=== PATIENT | female | born 1960 | race Caucasian/White ===

== ENCOUNTER 2017-07-08 10:47 | Day surgery (SDC) | payer BC ==
[~2017-07-08 10:47] MED LIST: Desflurane 240 ML Bottle ONE; Lactated Ringers 1,000 ML IV SCH; Lidocaine 2% 5 ML SDV ONE; Propofol 200 MG/20 ML SDV ONE; Sodium Chloride 0.9% 10 ML Syringe FLUSH PRN; Sodium Chloride 0.9% 2.5 ML Syringe FLUSH PRN
--- NOTE | 2017-07-08 11:30 | PCM.PREANE ---
Preanesthetic Assessment - Anesthesia/Transfusion/Family Hx Anesthesia History: Prior Anesthesia Reaction Other Type of Anesthesia Reaction Comment: "panic attacks waking up from anesthesia" Family History of Anesthesia Reaction: No Transfusion History: Prior Transfusion Without Reaction - Review of Systems General: No Symptoms Pulmonary: No Symptoms Cardiovascular: No Symptoms Neurological: No Symptoms Other: Reports: Anxiety - Physical Assessment NPO Status Date: 07/07/17 Height: 1.52 m Weight: 74.843 kg ASA Class: 3 Mental Status: Alert & Oriented x3 Airway Class: Mallampati = 1 Dentition: Reports: Normal Dentition Lungs: Clear to Auscultation, Normal Respiratory Effort Cardiovascular: Regular Rate, Regular Rhythm - Allergies Allergies/Adverse Reactions: Allergies Allergy/AdvReac Type Severity Reaction Status Date / Time erythromycin base Allergy Itching Verified 07/05/17 14:12 [Erythromycin Base] escitalopram oxalate Allergy Cough Verified 07/05/17 14:12 [From Lexapro] liraglutide [From Victoza] Allergy Nausea Verified 07/05/17 13:06 - Acknowledgements Anesthesia Type Planned: MAC Pt an Appropriate Candidate for the Planned Anesthesia: Yes Alternatives and Risks of Anesthesia Discussed w Pt/Guardian: Yes Pt/Guardian Understands and Agrees with Anesthesia Plan: Yes Additional Comments: PMH: DM2, CHEPE, narcolepsy, HTN, GERD, fibromyalgia, anxiety PreAnesthesia Questionnaire HEENT History: Reports: Other (See Below) Other HEENT History: wears glasses Cardiovascular History: Reports: Hypertension Respiratory History: Reports: Sleep Apnea Other Respiratory History: uses CPAP Gastrointestinal History: Reports: GERD, Hiatal Hernia Genitourinary History: Reports: Renal Calculus FAGOTER History: Reports: , Spontaneous Musculoskeletal History: Reports: Fibromyalgia, Osteoarthritis, RA Neurological History: Reports: Headaches, Chronic, Vertigo, Other (See Below) Other Neuro History: motion sickness Psychiatric History: Reports: Anxiety, Depression Endocrine/Metabolic History: Reports: Diabetes, Type II, Obesity/BMI 30+ Hematologic History: Reports: Blood Transfusion(s) Other Hematologic History: iron deficient anemia, transfusion following post bleed Immunologic History: Reports: None Oncologic (Cancer) History: Reports: None Dermatologic History: Reports: None - Infectious Disease History Infectious Disease History: Reports: None - Past Surgical History Head Surgeries/Procedures: Reports: None HEENT Surgical History: Reports: Tonsillectomy Cardiovascular Surgical History: Reports: None Respiratory Surgical History: Reports: None GI Surgical History: Reports: Cholecystectomy, Colonoscopy, EGD Female Surgical History: Reports: Hysterectomy, Tubal Ligation, Other (See Below) Other Female Surgeries/Procedures: Cystocele and Rectocele repair Endocrine Surgical History: Reports: None Neurological Surgical History: Reports: None Musculoskeletal Surgical History: Reports: None Oncologic Surgical History: Reports: None Dermatological Surgical History: Reports: None - SUBSTANCE USE Smoking Status *Q: Never Smoker Tobacco Use Within Last Twelve Months: No Second Hand Smoke Exposure: No Days Per Week of Alcohol Use: 0 Number of Drinks Per Day: 0 Total Drinks Per Week: 0 Recreational Drug Use History: No - HOME MEDS Home Medications: Home Meds Esomeprazole Magnesium [Nexium] 40 mg PO DAILY 02/28/14 [History] Losartan [Cozaar] 25 mg PO DAILY 02/28/14 [History] Sucralfate [Carafate] 1 gm PO BEDTIME 02/28/14 [History] Venlafaxine [Effexor XR] 100 mg PO BEDTIME 02/28/14 [History] metFORMIN [Glucophage] 1,000 mg PO BID 02/28/14 [History] traZODone HCl [Trazodone HCl] 150 mg PO BEDTIME 03/05/14 [History] Canagliflozin [Invokana] 300 mg PO DAILY 01/02/16 [History] LORazepam 0.5 - 1 tab PO ASDIRECTED PRN 01/02/16 [History] SitaGLIPtin [Januvia] 100 mg PO DAILY 01/02/16 [History] Estradiol [Vagifem] 1 tab VAG ASDIRECTED 03/02/16 [History] Methylphenidate HCl [Methylphenidate LA] 40 mg PO DAILY 03/05/16 [History] Aspirin [Adult Low Dose Aspirin EC] 81 mg PO DAILY 07/05/17 [History] Calcium Carbonate/Vitamin D3 [Calcium 600 + Vit D 200] 1 tab PO DAILY 07/05/17 [ History] Diclofenac Sodium [Voltaren] 75 mg PO ASDIRECTED PRN 07/05/17 [History] Docusate Sodium [Colace] 100 mg PO BID 07/05/17 [History] - CURRENT (IN HOUSE) MEDS Current Meds: Current Medications Lactated Ringer's (Ringers, Lactated) 1,000 mls @ 125 mls/hr IV ASDIRECTED ANGEL Sodium Chloride (Saline Flush) 10 ml FLUSH ASDIRECTED PRN PRN Reason: Keep Vein Open Sodium Chloride (Saline Flush) 2.5 ml FLUSH ASDIRECTED PRN PRN Reason: Keep Vein Open Sodium Chloride (Saline Flush) 10 ml FLUSH ASDIRECTED PRN PRN Reason: Keep Vein Open Sodium Chloride (Saline Flush) 2.5 ml FLUSH ASDIRECTED PRN PRN Reason: Keep Vein Open Discontinued Medications Desflurane (Suprane) Confirm Administered Dose 240 ml .ROUTE .STK-MED ONE Stop: 07/06/17 09:26 Lidocaine (Xylocaine-Mpf 2%) Confirm Administered Dose 5 ml .ROUTE .STK-MED ONE Stop: 07/08/17 09:40 Propofol (Diprivan 20 Ml) Confirm Administered Dose 400 mg .ROUTE .STK-MED ONE Stop: 07/08/17 09:40
--- NOTE | 2017-07-08 13:25 | PCM.OPNOTE ---
- General Post-Op/Procedure Note Date of Surgery/Procedure: 07/08/17 Operative Procedure(s): Diagnostic EGD Findings: Moderate sized hiatal hernia Pre Op Diagnosis: Hiatal hernia Post-Op Diagnosis: same Anesthesia Technique: MAC Primary Surgeon: Lauren Castro Condition: Good
[2017-07-08 14:46] VITALS: BP 117/68
--- NOTE | 2017-07-08 15:20 | OR ---
SURGEON: LAUREN CASTRO MD DATE OF PROCEDURE: 07/08/2017 PREOPERATIVE DIAGNOSIS: Hiatal hernia. POSTOPERATIVE DIAGNOSIS: Hiatal hernia. PROCEDURE PERFORMED: Diagnostic EGD. ENDOSCOPIST: Lauren Castro MD. ANESTHESIA: MAC. INSTRUMENT USED: Olympus endoscope. EXTENT OF EXAM: To the second portion of duodenum. PREPARATION: Good. LIMITATIONS: None. INDICATION FOR EXAMINATION: The patient is a 56-year-old female, who has had gastritis and issues with reflux her entire life. She feels like her symptoms are getting worse. A preoperative CT revealed a moderate-sized hiatal hernia. The decision was made to perform a diagnostic EGD. We discussed the procedure, expected perioperative course, and risks including bleeding, infection, damage to surrounding structures, including perforation. The patient verbalized understanding and wishes to proceed. PROCEDURE IN DETAIL: The patient was brought to the endoscopy suite and placed in a beach chair position. A time-out was completed verifying the patient's name, age, date of , allergies, and procedure to be performed. A bite block was placed in the patient's mouth and monitored anesthesia care induced. Continuous oxygen was provided via nasal cannula throughout the procedure. After adequate sedation was achieved, a well lubricated endoscope was placed in the patient's mouth and advanced under direct visualization to the second portion of duodenum. This appeared normal and a photograph was taken. The scope was then fully withdrawn while examining the color, texture, anatomy, and integrity of the mucosa of the upper GI tract. The patient's intestinal mucosa appeared normal. The scope was brought in the stomach and a photograph taken of the pylorus and the GE junction. The patient clearly had a moderate-sized hiatal hernia as was demonstrated under preoperative CT. The scope was then straightened out. The gastric mucosa all appeared normal with no evidence of inflammation or ulceration. Biopsies were taken of the gastric antrum, body, and fundus and sent for histologic review. The scope was brought into the distal esophagus. There was no evidence of any esophagitis. A photograph was taken of the GE junction, as well as the hiatal hernia sac. The scope was then fully withdrawn and the remainder of the esophageal mucosa was free of pathology. The scope was then removed and the procedure terminated. The patient tolerated the procedure well and was taken to PACU in stable condition. ENDOSCOPIC DIAGNOSIS: Moderate-sized hiatal hernia. RECOMMENDATIONS: Follow up in clinic in 2 weeks. BERONICA / KENISHA /[id number]
== END 2017-07-08 14:23 | disposition home or self-care (01) ==
LOC: MW.SDS 10:47
PROVIDERS: ATTEND Surgery
DX: K44.9 Diaphragmatic hernia without obstruction or gangrene (principal); K29.50 Unspecified chronic gastritis without bleeding; K21.9 Gastro-esophageal reflux disease without esophagitis; D64.9 Anemia, unspecified; I10 Essential (primary) hypertension; E11.65 Type 2 diabetes mellitus with hyperglycemia; E83.42 Hypomagnesemia; E66.9 Obesity, unspecified; G47.419 Narcolepsy without cataplexy; G47.00 Insomnia, unspecified; G47.33 Obstructive sleep apnea (adult) (pediatric); M79.7 Fibromyalgia; M19.049 Primary osteoarthritis, unspecified hand; M19.071 Primary osteoarthritis, right ankle and foot; M19.072 Primary osteoarthritis, left ankle and foot; M06.9 Rheumatoid arthritis, unspecified; F41.9 Anxiety disorder, unspecified; Z79.82 Long term (current) use of aspirin; Z79.84 Long term (current) use of oral hypoglycemic drugs; Z79.899 Other long term (current) drug therapy; Z88.1 Allergy status to other antibiotic agents; Z88.8 Allergy status to other drugs, medicaments and biological substances; Z90.49 Acquired absence of other specified parts of digestive tract; Z90.710 Acquired absence of both cervix and uterus; Z90.89 Acquired absence of other organs; Z98.51 Tubal ligation status; Z98.890 Other specified postprocedural states
CPT/HCPCS: 43239; 82962; J7120; 00731; 88305; 88312; J2704

== ENCOUNTER 2021-06-13 06:36 | Day surgery (SDC) | payer BC ==
[~2021-06-13 06:36] MED LIST changes: -Desflurane 240 ML Bottle ONE; -Lidocaine 2% 5 ML SDV ONE; -Propofol 200 MG/20 ML SDV ONE; -Sodium Chloride 0.9% 10 ML Syringe FLUSH PRN; -Sodium Chloride 0.9% 2.5 ML Syringe FLUSH PRN; +ceFAZolin 2 GM in Premix Bag 1 BAG IV ONE
[2021-06-13] MEDS ORDERED: fentaNYL 100 MCG/2 ML SDV IVPUSH PRN (07:00)
[2021-06-13] MEDS ORDERED: HYDROmorphone 1 MG/ML Syringe IVPUSH PRN (07:00)
[2021-06-13] MEDS ORDERED: Naloxone 0.4 MG/ML SDV IVPUSH PRN (07:00)
[2021-06-13] MEDS ORDERED: Ondansetron 4 MG/2 ML SDV IVPUSH PRN ×2 (07:00→17:41)
[2021-06-13] MEDS ORDERED: Albuterol 0.083% 2.5 MG/3 ML Neb Soln NEB PRN (07:00)
[2021-06-13] MEDS ORDERED: Metoclopramide 10 MG/2 ML SDV IVPUSH PRN (07:00)
[2021-06-13] MEDS ORDERED: Propofol 200 MG/20 ML SDV ONE (07:16)
[2021-06-13] MEDS ORDERED: Octyl 2-Cyanoacrylate 1 Tube ONE (07:17)
[2021-06-13] MEDS ORDERED: Dexmedetomidine 200 MCG/2 ML SDV ONE (07:17)
[2021-06-13] MEDS ORDERED: Lidocaine 1% 5 ML VIAL ONE ×2 (07:17→07:33)
[2021-06-13] MEDS ORDERED: Bupivacaine 0.25%/EPINEPHrine 1:200,000 10 ML SDV ONE (07:17)
[2021-06-13] MEDS ORDERED: Water For Injection, Sterile 20 ML ONE (07:17)
[2021-06-13] MEDS ORDERED: ceFAZolin 1 GM Vial ONE (08:01)
[2021-06-13] MEDS ORDERED: ePHEDrine 50 MG/ML SDV ONE (08:12)
[2021-06-13] MEDS ORDERED: Ondansetron 4 MG/2 ML SDV ONE (08:26)
[2021-06-13] MEDS ORDERED: Ketorolac 30 MG/ML SDV ONE (08:26)
[2021-06-13] MEDS ORDERED: Vasopressin 20 Units/1 ML MDV ONE (08:49)
[2021-06-13] MEDS ORDERED: fentaNYL 100 MCG/2 ML SDV ONE (09:17)
[2021-06-13] MEDS ORDERED: Acetaminophen 1,000 MG in Premix Bag 1 BAG IV ONE (10:54)
[2021-06-13 12:56] VITALS: BP 111/59; PULSE 100
[2021-06-13] MEDS ORDERED: Morphine 4 MG/ML VIAL IVPUSH PRN (17:39)
[2021-06-13] MEDS ORDERED: Acetaminophen/oxyCODONE 325-5 MG Tab PO PRN (17:39)
[2021-06-13] MEDS ORDERED: Lactated Ringers 1,000 ML IV SCH (17:45)
== END 2021-06-13 12:25 | disposition home or self-care (01) ==
LOC: MW.SDS 06:36
PROVIDERS: ATTEND Surgery
DX: M31.6 Other giant cell arteritis (principal); F41.9 Anxiety disorder, unspecified; I10 Essential (primary) hypertension; G47.00 Insomnia, unspecified; E11.9 Type 2 diabetes mellitus without complications; K21.9 Gastro-esophageal reflux disease without esophagitis; H04.129 Dry eye syndrome of unspecified lacrimal gland; Z88.8 Allergy status to other drugs, medicaments and biological substances; Z79.899 Other long term (current) drug therapy; Z98.890 Other specified postprocedural states
CPT/HCPCS: 37609; 76998; 82947; J0131; J0690; J2370; J2405; J2704; J3010; J3490; J7030; J7120; 00352; A9270-GY; J1885

== ENCOUNTER 2022-10-29 08:57 | Day surgery (SDC) | payer BC ==
[~2022-10-29 08:57] MED LIST changes: +Sodium Chloride 0.9% 10 ML Syringe FLUSH PRN; +Sodium Chloride 0.9% 2.5 ML Syringe FLUSH PRN; +Sodium Chloride 0.9% 20 ML SDV IV PRN; -ceFAZolin 2 GM in Premix Bag 1 BAG IV ONE; +propofoL 50 ML ONE
[2022-10-29] MEDS ORDERED: propofoL 50 ML ONE (10:40)
[2022-10-29 11:27] VITALS: BP 105/68; PULSE 82
== END 2022-10-29 11:50 | disposition home or self-care (01) ==
LOC: MW.SDS 08:57
PROVIDERS: ATTEND Surgery
DX: D50.9 Iron deficiency anemia, unspecified (principal); K44.9 Diaphragmatic hernia without obstruction or gangrene; K29.50 Unspecified chronic gastritis without bleeding; K21.9 Gastro-esophageal reflux disease without esophagitis; K64.2 Third degree hemorrhoids; K57.30 Diverticulosis of large intestine without perforation or abscess without bleeding; K31.89 Other diseases of stomach and duodenum; E11.9 Type 2 diabetes mellitus without complications; G47.33 Obstructive sleep apnea (adult) (pediatric); F41.9 Anxiety disorder, unspecified; M79.7 Fibromyalgia; G47.00 Insomnia, unspecified; M19.071 Primary osteoarthritis, right ankle and foot; M19.072 Primary osteoarthritis, left ankle and foot; M81.0 Age-related osteoporosis without current pathological fracture; Z88.1 Allergy status to other antibiotic agents; Z88.8 Allergy status to other drugs, medicaments and biological substances; Z79.84 Long term (current) use of oral hypoglycemic drugs; Z79.4 Long term (current) use of insulin; Z79.899 Other long term (current) drug therapy; Z90.49 Acquired absence of other specified parts of digestive tract; Z90.710 Acquired absence of both cervix and uterus; Z98.51 Tubal ligation status
CPT/HCPCS: 43239; 45378; J2704; J7120; 00813